=== PATIENT | female | born 1975 | race Two or more races ===

== ENCOUNTER 2017-08-16 11:12 | Emergency (ER) | payer OTHER ==
--- NOTE | 2017-08-16 11:14 | PDOC ---
History of Present Illness - General Chief Complaint: Chest Pain Stated Complaint: SOB, RT CHEST AND BACK PAIN Time Seen by Provider: 08/16/17 11:13 - History of Present Illness Initial Comments: 08/16/17 11:49 The patient is a 42 year old female with a history of HTN who presents for evaluation of chest pain with associated SOB. The patient reports a 1 month history of intermittent right sided chest pain that she describes as a pressure with occasional radiation into her back. She notes associated SOB with the pain and notes that her symptoms worsen with movement and exercise. She states that although her symptoms have been intermittent, they have been increasing in frequency and becoming more persistent prompting her presentation to the ED today. She denies any recent long travel, leg swelling or control use. She states that she has seen a mat inspector and had a negative cardiac work up over the past month. She denies fevers, chills, cough, nausea, vomiting, abdominal pain, or changes with urination or bowel movements. Past History - Past Medical History Allergies/Adverse Reactions: Allergies Allergy/AdvReac Type Severity Reaction Status Date / Time No Known Allergies Allergy Verified 08/16/17 11:13 Home Medications: Ambulatory Orders Losartan/Hydrochlorothiazide [Losartan-Hctz 100-25 mg Tab] 1 each PO DAILY 08/16 Review of Systems - Review of Systems Comments:: 08/16/17 11:55 Constitutional: No fevers, chills, fatigue, malaise HEENT: No Rhinorrhea, nasal congestion, visual changes Cardiovascular: Chest pain. No syncope, palpitations, lightheadedness Respiratory: SOB No Cough, Hemoptysis, Gastrointestinal: No Abdominal pain, Nausea, Vomiting, Constipation, Diarrhea, Melena Genitourinary: No Dysuria, Frequency, Urgency, Hesitancy, Hematuria, Flank pain Musculoskeletal: No Myalgia, arthralgia Skin: No rashes, bruising, pallor Neurologic: No Headache, Dizziness, Numbness, Weakness, or Tingling Psychiatric: No Hallucinations. No SI or HI *Physical Exam - Physical Exam Comments: 08/16/17 12:11 General Appearance: Nourished. No Apparent Distress HEENT: EOMI, PERLA. No Pharyngeal Erythema, Tonsillar Exudate, Tonsillar Erythema Neck: No Cervical Lymphadenopathy Respiratory/Chest: Lungs Clear, Normal Breath Sounds. No Crackles, Rales, Rhonchi, Wheezing Cardiovascular: Regular Rhythm, Regular Rate. No JVD, Murmur, Gallops, Rubs Gastrointestinal/Abdominal: Normal Bowel Sounds, Soft. No Guarding, Rebound, Tenderness Musculoskeletal: No CVA Tenderness Extremity: No lower extremity edema or tenderness. Normal Capillary Refill Integumentary: Normal Color, Dry, Warm Neurologic: Fully Oriented, Alert, Normal Mood/Affect, Normal Response, Heart Score/ECG Review #1 ECG reviewed & interpreted by me at: 12:15 General ECG Interpretation: Sinus Rhythm, Normal Rate, Normal Intervals, No acute ischemic changes ED Treatment Course - LABORATORY CBC & Chemistry Diagram: 08/16/17 12:15 08/16/17 12:19 Medical Decision Making - Medical Decision Making 08/16/17 12:11 The patient is a 42 year old female with a history of HTN who presents for evaluation of chest pain with associated SOB. Differential includes but is not limited to: Musculoskeletal, acs, PE, pneumonia, metabolic derangement. Given the patient's described symptoms of pain worse with movement, it is likely the patient's symptoms are due to musculoskeletal strain. However, given the chronicity of her symptoms with a negative past cardiac workup and associated SOB, we will obtain a cta of the chest to evaluate for PE. Her symptoms are unlikely to be due to acs given her past negative work up, but we will send a cbc, cmp, troponin and ekg to evaluate further. We will continue to monitor and reassess. 08/16/17 14:36 Cbc, cmp, troponin are unremarkable. EKG is unremarkable here in the ED. Patient's chest ct is negative for acute process as read by our radiologist. The patient's symptoms are likely musculoskeletal in nature. We are comfortable discharging the patient home with follow up with the patient's primary care provider and mat inspector. We discussed the results with the patient as well as the plan and she voiced understanding and is agreeable with the plan. *DC/Admit/Observation/Transfer Diagnosis at time of Disposition: Atypical chest pain - Discharge Dispostion Disposition: HOME Condition at time of disposition: Good Admit: No - Patient Instructions Printed Discharge Instructions: DI for Atypical Chest Pain Additional Instructions: Por favor regrese a la kamran de emergencias si experimenta o empeora los sntomas , incluyendo el empeoramiento del dolor torcico, dificultad para respirar, fiebre o escalofros. Los resultados del laboratorio y los resultados de la imagen fueron normales aqu en urgencias. Julien dolor es probable debido a la tensin muscular y usted puede usar 600 de Motrin cada 8 horas segn sea necesario para el manejo del dolor. Por favor llame a julien cardilogo para programar nadira jabier de seguimiento dentro de 1 semana para discutir julien visita a ER. Tambin quisiramos que usted programe nadira jabier de la carta recordativa con julien abastecedor de cuidado primario en el plazo de 1 semana para discutir julien visita de ER y la gerencia adicional de jackie sntomas. Print Language: LUX[place]
--- NOTE | 2017-08-16 11:42 | PDOC ---
Attending Attestation - Resident Resident Name: Satish Keane - ED Attending Attestation I have performed the following: I have examined & evaluated the patient, The case was reviewed & discussed with the resident, I agree w/resident's findings & plan - HPI HPI: 08/16/17 11:38 42 y/o female with PMX of HTN, presents with right sided chest pain on/off for one month with SOB. Patient states occasional back pain but now arm or jaw pain. No fall or trauma. No diaphoresis. Patient has had cardiac work up with no answers to her pain. No N/V/D/C. No traveling. No leg pain. - Physicial Exam PE: 08/16/17 11:39 VS stable HEENT unremarkable Heart: RRR w/o murmur,, no clicks, gallops or rubs, no bruits b/l Lungs CTA b/l, no wheezes rhonchi or rales, non reproducible pain noted Abd: soft non tender +BS EXT no C/C/E, no calf tenderness b/l Neuro: grossly intact - Medical Decision Making 08/16/17 11:44 EKG NSR at rate of 60 08/16/17 14:44 Pt is feeling better. CT chest negative for PE, cardiac work up negative Will discharge home with atypical chest pain Family in agreement with plan Needs follow up with PMD and [facility] Discussed case with Dr. Keane, resident
[2017-08-16 12:01] VITALS: TEMP 98.5; BMI 39.3
[2017-08-16 12:25] LABS: BASOPHIL 0.5 % (0-2.0); EOSINOPHIL 2.1 % (0-4.5); MCH 30.2 pg (25.7-33.7); MCHC 34.1 g/dl (32.0-36.0); MEAN CELL VOLUME 88.5 fl (80-96); MEAN PLT VOLUME 8.7 fl (7.5-11.1); NEUTROPHILS 51.8 % (42.8-82.8); PLATELET COUNT 305 K/MM3 (134-434); WHITE BLOOD COUNT 6.9 K/mm3 (4.0-10.8)
[2017-08-16 12:45] LABS: ALK PHOS 68 U/L (32-92); ANION GAP 6 (8-16); BILIRUBIN,TOTAL 0.6 mg/dl (0.2-1.0); CO2 28 mmol/L (22-28); CREATININE 0.6 mg/dl (0.6-1.3); GLUCOSE,RANDOM 129 mg/dl (74-106); SGOT/AST 25 U/L (10-42); SGPT/ALT 19 U/L (10-40); TOT PROT 7.6 g/dl (6.4-8.3)
[2017-08-16 13:07] VITALS: BP 101/58; PULSE 67
[2017-08-16 13:09] LABS: TROPONIN I (DFP) < 0.03 ng/ml (0.03-0.50)
[2017-08-16 13:20] LABS: CPK 168 IU/L (26-192)
--- NOTE | 2017-08-16 19:54 | EKG ---
Test Reason : Blood Pressure : / mmHG Vent. Rate : 060 BPM Atrial Rate : 060 BPM P-R Int : 126 ms QRS Dur : 088 ms QT Int : 404 ms P-R-T Axes : 056 028 034 degrees QTc Int : 404 ms NORMAL SINUS RHYTHM NORMAL ECG NO PREVIOUS ECGS AVAILABLE Confirmed by DANN BELLA MD ([id number] on 08/16/2017 7:53:51 PM Referred By: SHAI WILLINGHAM Confirmed By:DANN BELLA MD
== END 2017-08-16 14:59 | disposition home or self-care (01) ==
LOC: FER 11:12
DX: R07.89 Other chest pain (principal); I10 Essential (primary) hypertension
CPT/HCPCS: 36415; 71275-TC; 80053; 82550; 82553; 84484; 85025; 93005; 99283-25